=== PATIENT | female | born 2000 | race African-American/Black ===

== ENCOUNTER 2022-04-24 09:51 | Emergency (ER) | payer SELFPAY ==
[2022-04-24] MEDS ORDERED: Lidocaine 1% w/Epinephrine 1:100K 20 ML VIAL ONE (10:24)
[2022-04-24] MEDS ORDERED: Boostrix 0.5 ML (Tdap) VIAL ONE (10:25)
[2022-04-24] MEDS ORDERED: Acetaminophen 500 MG TAB ONE (10:25)
== END 2022-04-24 11:38 | disposition home or self-care (01) ==
LOC: CSHERS 09:51
DX: L02.412 Cutaneous abscess of left axilla (principal)
CPT/HCPCS: 10060; 90471; 90715

== ENCOUNTER 2022-05-30 21:38 | Emergency (ER) | payer SELFPAY | END 2022-05-30 22:53 | disposition home or self-care (01) | LOC: CSHERS 21:38 | DX: R25.2 Cramp and spasm (principal) | CPT/HCPCS: 99281 ==

== ENCOUNTER 2023-01-04 21:15 | Emergency (ER) | payer SELFPAY ==
[2023-01-05] MEDS ORDERED: Lidocaine 1% w/Epinephrine 1:200K 30 ML VIAL ONE (00:05)
== END 2023-01-05 01:16 | disposition home or self-care (01) ==
LOC: CSHERS 21:15
DX: L02.412 Cutaneous abscess of left axilla (principal)
CPT/HCPCS: 10060; 90471

== ENCOUNTER 2023-05-15 08:38 | Emergency (ER) | payer SELFPAY ==
[2023-05-15] MEDS ORDERED: Lidocaine 1% w/Epinephrine 1:200K 30 ML VIAL ONE (10:15)
== END 2023-05-15 11:22 | disposition home or self-care (01) ==
LOC: CSHERS 08:38
DX: L02.414 Cutaneous abscess of left upper limb (principal)
CPT/HCPCS: 10060

== ENCOUNTER 2024-08-23 09:12 | Emergency (ER) | payer SELFPAY ==
[2024-08-23] MEDS ORDERED: Ketorolac Tromethamine 30 MG (1 mL) VIAL ONE (09:55)
[2024-08-23] MEDS ORDERED: Neomycin/Polymyxin/HC Otic Solution 10 ML BOT ONE (10:06)
[2024-08-23] MEDS ORDERED: Lidocaine 1% w/Epinephrine 1:200K 30 ML VIAL ONE (10:06)
[2024-08-23 10:28] LABS: #Basophils 0.03 10x3/uL (0.0-0.2); #Eosinphils 0.05 10x3/uL (0.0-0.5); #Monocytes 1.11 10x3/uL (0.0-1.1); #Neutrophils 7.53 10x3/uL (1.5-8.4); %Basophils 0.3 % (0.0-2.0); %Eosinophils 0.5 % (0.0-6.0); %Lymphocytes 14.1 % (18.0-47.0); %Monocytes 10.9 % (0.0-10.0); %Neutrophils 73.9 % (40.0-75.0); Bilirubin Neg (Negative); Blood, Urine 25 (Negative); Clarity Slightly Cloudy (Clear); Glucose, Urine (Dipstick) Normal (Negative); Hematocrit 37.3 % (34.9-44.5); Hemoglobin 12.2 g/dL (12.0-15.5); Ketone, Urine 50 mg/dL (Negative); Leukocyte 500 (Negative); Mean Corpuscular HGB CONC 32.7 g/dL (32.0-36.0); Mean Corpuscular Hemoglobin 27.9 pg (27.0-33.0); Mean Corpuscular Volume 85.4 fL (81.6-98.3); Mean Platelet Volume 10.5 fL (7.4-10.4); Nitrite Negative (Negative); Platelet Count 233 10x3/uL (150-450); Protein, Urine (Dipstick) 30 mg/dl (Neg-Trace); RBC Distribution Width 13.2 % (11.5-14.5); Red Blood Cell (RBC) Count 4.37 10x6/uL (3.90-5.03); Specific Gravity, Urine 1.025 (1.005-1.030); Urobilinogen Normal mg/dL (Less than 2); White Blood Cell (WBC) Count 10.2 10x3/uL (3.5-10.5)
[2024-08-23 10:36] LABS: BHCG - Serum Negative (NEGATIVE); Pregs Control Background? CLEAR/WHITE (CLR/WHITE); Pregs Control Bar Appear? YES (CONTROL BAR)
[2024-08-23 10:41] LABS: Bacteria/HPF 2+ HPF (None Seen); CAUTI Indications for Culture Pelvic or flank pain; RBC/HPF 0-3 HPF (0-3); Trichomonas/HPF 1+ HPF (None Seen); WBC/HPF 21-50 HPF (0-3)
[2024-08-23 10:42] LABS: Urine Culture Reflex Yes Yes
[2024-08-23 10:44] LABS: ALT (SGPT) 8 U/L (8-55); AST (SGOT) 11 U/L (5-34); Albumin 3.6 g/dL (3.5-5.0); Alkaline Phosphatase 70 U/L (40-110); Anion Gap 14 mmol/L (10-20); BUN (Urea Nitrogen) 9 mg/dL (7.0-18.7); Bilirubin, Total 0.4 mg/dL (0.2-1.2); Calc. Creatinine Clearance 0 mL/min (70-130); Calcium 9.5 mg/dL (7.8-10.44); Carbon Dioxide 20 mmol/L (22-29); Chloride 105 mmol/L (98-107); Estimated GFR 111; Globulin 4.6 g/dL (2.4-3.5); Glucose 98 mg/dL (70-105); Lipase 21 U/L (8-78); Magnesium 1.7 mg/dL (1.6-2.6); Potassium 3.8 mmol/L (3.5-5.1); Protein, Total 8.2 g/dL (6.0-8.3); Sodium 135 mmol/L (136-145)
[2024-08-24 00:13] LABS: Chlam.trachomatis by PCR,Urine Not Detected (NotDetected); GC N.gonorrhoeae PCR,UrineVOID Not Detected (NotDetected)
== END 2024-08-23 12:21 | disposition home or self-care (01) ==
LOC: CSHERS 09:12
DX: L02.214 Cutaneous abscess of groin (principal); A59.01 Trichomonal vulvovaginitis
CPT/HCPCS: 80053; 81001; 83690; 83735; 84703; 85025; 87086; 87491; 87591; 96374; J1885

== ENCOUNTER 2024-09-20 22:34 | Emergency (ER) | payer SELFPAY | END 2024-09-20 23:11 | disposition home or self-care (01) | LOC: CSHERS 22:34 | DX: T19.2XXA Foreign body in vulva and vagina, initial encounter (principal) | CPT/HCPCS: 99283 ==

== ENCOUNTER 2024-10-19 21:14 | Emergency (ER) | payer SELFPAY ==
[2024-10-19] MEDS ORDERED: Lidocaine 1% w/Epinephrine 1:200K 30 ML VIAL ONE (22:43)
== END 2024-10-19 23:16 | disposition home or self-care (01) ==
LOC: CSHERS 21:14
DX: L02.31 Cutaneous abscess of buttock (principal)
CPT/HCPCS: 10060

== ENCOUNTER 2025-07-02 09:15 | Emergency (ER) | payer MEDICAID ==
[2025-07-02] MEDS ORDERED: Lidocaine 1% w/Epinephrine 1:200K 30 ML VIAL ONE (10:21)
== END 2025-07-02 12:42 | disposition home or self-care (01) ==
LOC: CSHERS 09:15
DX: L03.115 Cellulitis of right lower limb (principal); L03.317 Cellulitis of buttock
CPT/HCPCS: 10060